=== PATIENT | female | born 1955 | race Hispanic/Latino ===

== ENCOUNTER 2018-09-02 21:58 | Emergency (ER) | payer MEDICAID ==
[2018-09-02 22:55] LABS: EOSINOPHILS % (AUTO) 2.8 % (0.0-8.0); LYMPHOCYTES % (AUTO) 32.5 % (21.0-51.0); MEAN CORPUSCULAR HEMOGLOBIN 27.9 pg (27.0-33.0); MEAN CORPUSCULAR HGB CONC 33.3 g/dL (32.0-36.0); MEAN CORPUSCULAR VOLUME 83.7 fL (79-99); MONOCYTES % (AUTO) 6.8 % (3.0-13.0); NEUTROPHILS % (AUTO) 56.9 % (40.0-77.0); PLATELET COUNT (AUTO) 159 K/uL (130-400); RED BLOOD CELL COUNT(AUTO) 4.78 MIL/uL (4.00-5.50); RED CELL DISTRIBUTION WIDTH 13.8 % (11.0-15.5); WHITE BLOOD COUNT (AUTO) 7.5 K/uL (4.8-10.8)
[2018-09-02 22:58] LABS: APPEARANCE,URINE Clear (CLEAR); BILIRUBIN,URINE Negative (NEGATIVE); COLOR,URINE Yellow (YELLOW); GLUCOSE, URINE (UA) Negative (NEGATIVE); KETONES,URINE Negative (NEGATIVE); LEUKOCYTE ESTERASE ,URINE Small (NEGATIVE); NITRATE,URINE Negative (NEGATIVE); OCCULT BLOOD,URINE Negative (NEGATIVE); PH,URINE 6.5 (5.0-8.0); PROTEIN,URINE Negative (NEGATIVE)
[2018-09-02 23:09] LABS: BACTERIA,URINE None Seen /HPF (None Seen); RBC,URINE None Seen /HPF (0-1); WBC,URINE 0-1 /HPF (0-1)
[2018-09-02 23:10] LABS: SQUAMOUS EPITHELIAL CELL,UR Rare /HPF (0-2)
[2018-09-02 23:29] LABS: CREATININE 0.7 mg/dL (0.5-1.5); POTASSIUM 3.7 mmol/L (3.5-5.1)
[2018-09-02 23:33] LABS: ALBUMIN 3.6 g/dL (3.5-5.0); BILIRUBIN,TOTAL 0.4 mg/dL (0.2-1.0); TOTAL PROTEIN, SERUM 7.2 g/dL (6.0-8.3)
[2018-09-02] MEDS ORDERED: SODIUM CHLORIDE 0.9% 1000ML 1,000 ML IV ONE (23:42)
[2018-09-02] MEDS ORDERED: FAMOTIDINE/PF 20 MG/2 ML VIAL IV ONE (23:42)
[2018-09-02] MEDS ORDERED: ONDANSETRON HCL 4 MG/2 ML VIAL ONE (23:42)
== END 2018-09-03 02:04 | disposition home or self-care (01) ==
LOC: EDH 21:58
DX: K29.70 Gastritis, unspecified, without bleeding (principal); M19.90 Unspecified osteoarthritis, unspecified site; Z98.890 Other specified postprocedural states
CPT/HCPCS: 36415; 76705; 80053; 81001; 82550; 83690; 84484; 85025; 93005; 96374; 96375; 99285; J2405; J3490; J7030

== ENCOUNTER 2019-12-01 13:38 | Observation (INO) | payer MEDICARE ==
[~2019-12-01] VITALS: Ht 154.9 cm; Wt 62.6 kg
[2019-12-01 14:38] LABS: BASOPHILS % (AUTO) 0.7 % (0.0-5.0); EOSINOPHILS % (AUTO) 1.1 % (0.0-8.0); HEMATOCRIT 42.7 % (36-48); LYMPHOCYTES % (AUTO) 28.1 % (21.0-51.0); MEAN CORPUSCULAR HEMOGLOBIN 27.8 pg (27.0-33.0); MEAN CORPUSCULAR HGB CONC 33.3 g/dL (32.0-36.0); MEAN CORPUSCULAR VOLUME 83.7 fL (79-99); NEUTROPHILS % (AUTO) 59.9 % (40.0-77.0); PLATELET COUNT (AUTO) 139 K/uL (130-400); RED CELL DISTRIBUTION WIDTH 12.7 % (11.0-15.5); WHITE BLOOD COUNT (AUTO) 5.4 K/uL (4.8-10.8)
[2019-12-01 14:51] LABS: CREATININE 0.5 mg/dL (0.5-1.5); POTASSIUM 4.5 mmol/L (3.5-5.1)
[2019-12-01 14:54] LABS: ALBUMIN 3.5 g/dL (3.5-5.0); BILIRUBIN,TOTAL 0.3 mg/dL (0.2-1.0); TOTAL PROTEIN, SERUM 7.5 g/dL (6.0-8.3)
[2019-12-01] MEDS ORDERED: ONDANSETRON HCL 4 MG/2 ML VIAL ONE (15:01)
[2019-12-01] MEDS ORDERED: KETOROLAC TROMETHAMINE 15MG/ML ONE (15:01)
[2019-12-01] MEDS ORDERED: LIDOCAINE HCL 2% VISCOUS 15 ML UDCUP ONE (15:01)
[2019-12-01] MEDS ORDERED: MAG HYDROX/AL HYDROX/SIMETH ES 30 ML SUSP UDCUP ONE (15:01)
[2019-12-01] MEDS ORDERED: MORPHINE SULFATE 4 MG/1ML SYG ONE (15:02)
[2019-12-01] MEDS ORDERED: SODIUM CHLORIDE 0.9% 1000ML 1,000 ML IV ONE (15:02)
[2019-12-01 16:17] LABS: APPEARANCE,URINE Clear (CLEAR); BILIRUBIN,URINE Negative (NEGATIVE); COLOR,URINE Yellow (YELLOW); GLUCOSE, URINE (UA) Negative (NEGATIVE); KETONES,URINE Negative (NEGATIVE); LEUKOCYTE ESTERASE ,URINE Small (NEGATIVE); NITRATE,URINE Negative (NEGATIVE); OCCULT BLOOD,URINE Negative (NEGATIVE); PH,URINE 7.5 (5.0-8.0); PROTEIN,URINE Negative (NEGATIVE); UROBILINOGEN,URINE 0.2 mg/dL (0.2-1.0)
[2019-12-01 16:24] LABS: RBC,URINE 0-1 /HPF (0-1)
[2019-12-01 16:25] LABS: BACTERIA,URINE Few /HPF (None Seen); SQUAMOUS EPITHELIAL CELL,UR Few /HPF (0-2); TRANSITIONAL EPI CELLS,URINE Rare /HPF (None Seen)
[2019-12-01] MEDS ORDERED: 1/2 NORMAL SALINE 1,000 ML IV ONE (16:30)
[2019-12-01] MEDS ORDERED: ONDANSETRON HCL 4 MG/2 ML VIAL IVP PRN (16:45)
[2019-12-01] MEDS ORDERED: HYDROMORPHONE HCL 0.5 MG/0.5 ML ML IVP PRN (16:45)
[2019-12-01] MEDS: FAMOTIDINE/PF 20 MG/2 ML VIAL IV SCH (21:00)
[2019-12-02] MEDS: 1/2 NORMAL SALINE 1,000 ML IV SCH ×3 (00:45→16:45)
[2019-12-02 05:47] LABS: BASOPHILS % (AUTO) 0.8 % (0.0-5.0); HEMATOCRIT 38.8 % (36-48); LYMPHOCYTES % (AUTO) 27.1 % (21.0-51.0); MEAN CORPUSCULAR HEMOGLOBIN 28.1 pg (27.0-33.0); MEAN CORPUSCULAR VOLUME 85.3 fL (79-99); MONOCYTES % (AUTO) 9.8 % (3.0-13.0); NEUTROPHILS % (AUTO) 60.1 % (40.0-77.0); PLATELET COUNT (AUTO) 129 K/uL (130-400); RED BLOOD CELL COUNT(AUTO) 4.55 MIL/uL (4.00-5.50); RED CELL DISTRIBUTION WIDTH 12.8 % (11.0-15.5); WHITE BLOOD COUNT (AUTO) 4.9 K/uL (4.8-10.8)
[2019-12-02 05:57] LABS: CREATININE 0.7 mg/dL (0.5-1.5)
[2019-12-02 06:05] LABS: BILIRUBIN,TOTAL 0.2 mg/dL (0.2-1.0); TOTAL PROTEIN, SERUM 6.5 g/dL (6.0-8.3)
[2019-12-02] MEDS: FAMOTIDINE/PF 20 MG/2 ML VIAL IV SCH (09:00)
[2019-12-02 09:55] VITALS: BP 138/68
[2019-12-02 11:00] VITALS: BP 122/74
--- NOTE | 2019-12-02 12:42 | NUR ---
PER PATIENT ON LOWER EXTREMITY CANNOT LIFT LEG MUCH HER LEFT ,PER PATIENT THIS IS FOR YEARS AND DOCTOR TOLD HER ITS DUE TO HER ARTHRITIS Addendum: 12/02/19 at 1312 by JOSSIE PINEDA RN RN Amended: Links added.
[2019-12-02 16:30] VITALS: BP 120/69
[2019-12-02] MEDS ORDERED: MELO-106 PO (17:11)
--- NOTE | 2019-12-02 17:25 | NUR ---
CALL TO DR LYONS ANSWERING SERVICE SPOKE WITH DIANE REGARDING FOLLOW UP ON CONSULT AND RESULTS OF HIDA SCAN . PENDING CALL BACK..INFORMED MAKI GIL THROUGH MESSAGE ON HIDA SCAN RESULTS .PENDING NEW ORDERS
[2019-12-02 19:15] VITALS: BP 114/70
[2019-12-02] MEDS ORDERED: LACTULOSE 20 GM/30 ML UDCUP PO SCH (20:15)
--- NOTE | 2019-12-02 22:30 | NUR ---
received call from [facility] stating prior scan ct resutls are wrong and the correct resutls have been updated paged dr. hutchison to make her aware of new resutls of hida scan but pending call back yet
--- NOTE | 2019-12-02 22:55 | NUR ---
pt kianna called b ack ,aware of correct results from hida scan stated no new orders, will continue with current plan of care aware patient might be schedule shaina for an egd as per dr. uriarte no new orders given by dr. hutchison, continue w current diet orders
[2019-12-03] VITALS (18 sets, daily range): BP systolic 103–167; BP diastolic 50–85
[2019-12-03] MEDS: 1/2 NORMAL SALINE 1,000 ML IV SCH ×4 (00:45→22:16)
--- NOTE | 2019-12-03 02:55 | NUR ---
paged dr. mayo
[2019-12-03] MEDS ORDERED: DICYCLOMINE HCL 20 MG TAB PO PRN (06:45)
--- NOTE | 2019-12-03 07:23 | NUR ---
DR. ELOY RAMIREZ
--- NOTE | 2019-12-03 07:45 | NUR ---
CALL BACK FROM DR LYONS, INFRMED HIM OF HIDA SCAN RESULTS, PATIENT CONTINUES WITH SOME PAIN TO EPIGASTRIC AREA, AND H-PYLORI POSITIVE .. PER DR LYONS SCHEDULE EGD AT 1330 TODAY AND MAY HAVE A CLEAR LIQUID FOR BREAKFAST
[2019-12-03] MEDS: FAMOTIDINE/PF 20 MG/2 ML VIAL IV SCH ×2 (09:00→21:28)
[2019-12-03] MEDS: POLYETHYLENE GLYCOL 3350 17 GM POWD.PACK PO SCH (09:00)
[2019-12-03] MEDS ORDERED: PROPOFOL 10 MG/ML 20ML VIAL IV ONE (15:20)
[2019-12-03] MEDS ORDERED: LIDOCAINE HCL-MPF 2% 5ML VIAL ONE (15:20)
--- NOTE | 2019-12-03 16:26 | NUR ---
Initial Assessment SW spoke to patient. Patient lives with spouse. No home health but had PHC with [facility] X 35 hours. Patient has no DME. Patient needs help with ADL's and does not drive. PCP is Dr. Emiil Solorio. Pharmacy is [facility] located in [place]. DCP is home. Addendum: 12/03/19 at 1627 by DANIEL GREEN SS Amended: Links added.
[2019-12-03] MEDS ORDERED: PHARMACY COMMUNICATION MISC SCH (20:00)
[2019-12-03] MEDS: CLARITHROMYCIN 500 MG TABLET PO SCH (21:28)
[2019-12-03] MEDS: PANTOPRAZOLE SODIUM 40 MG TABLET.DR PO SCH (21:28)
[2019-12-03] MEDS: AMOXICILLIN 500 MG CAPSULE PO SCH (21:28)
[2019-12-04 00:29] VITALS: BP 107/49
[2019-12-04] MEDS: 1/2 NORMAL SALINE 1,000 ML IV SCH ×3 (00:45→16:45)
[2019-12-04 05:19] LABS: EOSINOPHILS % (AUTO) 1.9 % (0.0-8.0); HEMATOCRIT 35.4 % (36-48); LYMPHOCYTES % (AUTO) 33.3 % (21.0-51.0); MEAN CORPUSCULAR HEMOGLOBIN 28.1 pg (27.0-33.0); MEAN CORPUSCULAR HGB CONC 33.3 g/dL (32.0-36.0); MEAN CORPUSCULAR VOLUME 84.3 fL (79-99); MONOCYTES % (AUTO) 9.3 % (3.0-13.0); NEUTROPHILS % (AUTO) 54.5 % (40.0-77.0); PLATELET COUNT (AUTO) 141 K/uL (130-400); RED CELL DISTRIBUTION WIDTH 12.4 % (11.0-15.5); WHITE BLOOD COUNT (AUTO) 5.2 K/uL (4.8-10.8)
[2019-12-04 05:39] LABS: ALBUMIN 2.8 g/dL (3.5-5.0); BILIRUBIN,TOTAL 0.7 mg/dL (0.2-1.0); CREATININE 0.6 mg/dL (0.5-1.5); POTASSIUM 3.6 mmol/L (3.5-5.1); TOTAL PROTEIN, SERUM 6.1 g/dL (6.0-8.3)
[2019-12-04 07:54] VITALS: BP 112/54
[2019-12-04] MEDS: FAMOTIDINE/PF 20 MG/2 ML VIAL IV SCH (09:00)
[2019-12-04] MEDS: CLARITHROMYCIN 500 MG TABLET PO SCH (10:52)
[2019-12-04] MEDS: AMOXICILLIN 500 MG CAPSULE PO SCH (10:52)
[2019-12-04] MEDS: POLYETHYLENE GLYCOL 3350 17 GM POWD.PACK PO SCH (10:53)
[2019-12-04] MEDS: PANTOPRAZOLE SODIUM 40 MG TABLET.DR PO SCH (10:53)
[2019-12-04 11:50] VITALS: BP 120/60
[2019-12-04 16:54] VITALS: BP 132/78
[2019-12-04] MEDS ORDERED: OMEP20TA25 PO ×2 (18:14)
[2019-12-04] MEDS ORDERED: CLAR-44 PO (18:17)
--- NOTE | 2019-12-04 18:59 | NUR ---
REviewed discharge instructions to call Dr. Strauss's office for appointment in two weeks for follow up and medication schedule. Prescription given to patient and patient verbalized understanding. PIV to LFA removed, catheter intact, bleeding controlled and dressing applied. Patient escorted down to hospital exit by wheelchair with belongings.
== END 2019-12-04 19:00 | disposition home or self-care (01) ==
LOC: EDH 13:38 → EDHIP 15:50 → 4DH 12-02 09:51
PROVIDERS: ADMIT Internal Medicine; ATTEND Internal Medicine
DX: K21.0 Gastro-esophageal reflux disease with esophagitis (principal); K29.00 Acute gastritis without bleeding; R11.2 Nausea with vomiting, unspecified; B96.81 Helicobacter pylori [H. pylori] as the cause of diseases classified elsewhere; K81.9 Cholecystitis, unspecified; I10 Essential (primary) hypertension; M79.7 Fibromyalgia; B19.20 Unspecified viral hepatitis C without hepatic coma; M19.90 Unspecified osteoarthritis, unspecified site; F41.9 Anxiety disorder, unspecified; Z79.899 Other long term (current) drug therapy
CPT/HCPCS: 36415 ×3; 43239; 76705; 78227; 80053 ×3; 80061; 81001; 82150; 82948; 83690 ×2; 84484; 85025 ×3; 86677; 93005; 96361 ×3; 96374; 96375; 99284; A4222; A4223; A4620; A9537; G0378 ×75; J1885; J2270; J2405 ×2; J2704; J3490 ×2; J7030 ×2

== ENCOUNTER → 2020-03-10 | Outpatient (CLI) | payer MEDICARE ==
[~2020-03-10] VITALS: Ht 167.6 cm; Wt 62.4 kg
[~2020-03-10] MED LIST: CEFAZOLIN SODIUM 1 GM VIAL IVP SCH; CLAR-44 PO; MELO-106 PO; OMEP20TA25 PO; VITAMIN D PO
[2020-03-10 12:41] LABS: BASOPHILS % (AUTO) 1.2 % (0.0-5.0); EOSINOPHILS % (AUTO) 3.6 % (0.0-8.0); HEMATOCRIT 42.5 % (36-48); LYMPHOCYTES % (AUTO) 35.6 % (21.0-51.0); MEAN CORPUSCULAR HEMOGLOBIN 28.5 pg (27.0-33.0); MEAN CORPUSCULAR HGB CONC 32.7 g/dL (32.0-36.0); MEAN CORPUSCULAR VOLUME 87.1 fL (79-99); MONOCYTES % (AUTO) 6.3 % (3.0-13.0); NEUTROPHILS % (AUTO) 53.1 % (40.0-77.0); PLATELET COUNT (AUTO) 156 K/uL (130-400); RED BLOOD CELL COUNT(AUTO) 4.88 MIL/uL (4.00-5.50); RED CELL DISTRIBUTION WIDTH 12.7 % (11.0-15.5); WHITE BLOOD COUNT (AUTO) 5.9 K/uL (4.8-10.8)
[2020-03-10 12:57] LABS: ALBUMIN 3.9 g/dL (3.5-5.0); BILIRUBIN,TOTAL 0.4 mg/dL (0.2-1.0); CREATININE 0.6 mg/dL (0.5-1.5); POTASSIUM 4.4 mmol/L (3.5-5.1); TOTAL PROTEIN, SERUM 7.6 g/dL (6.0-8.3)
[2020-03-10 13:59] VITALS: BP 148/61
--- NOTE | 2020-03-10 14:00 | NUR ---
PATIENT STATES THAT SHE IS HAVING A COUGH, SORE THROAT, RUNNY NOSE AND BODY ACHES. SYMPTOMS STARTED TODAY. PATIENT WAS INSTRUCTED TO CALL DR ADAMS'S OFFICE AND INFORM THEM OF HER SYMPTOMS .
--- NOTE | 2020-03-10 14:20 | NUR ---
SPOKE WITH LINDA FROM DR ADAMS'S OFFICE. CASE WILL BE CANCELED DUE TO PATIENT'S SYMPTOMS (COUGH, SORE THROAT, BODY ACHES, RUNNY NOSE).
== END ==
LOC: DAH 10:00 → EDSTATUS 11:00
PROVIDERS: ATTEND Student in an Organized Health Care Education/Training Program
DX: Z01.818 Encounter for other preprocedural examination (principal); K80.10 Calculus of gallbladder with chronic cholecystitis without obstruction
CPT/HCPCS: 36415; 80053; 85025; A6260

== ENCOUNTER 2020-09-14 07:45 | Inpatient (IN) | payer MEDICARE ==
[~2020-09-14] VITALS: Ht 160 cm; Wt 61.1 kg
[~2020-09-14 07:45] MED LIST changes: -CEFAZOLIN SODIUM 1 GM VIAL IVP SCH; -CLAR-44 PO; -MELO-106 PO; -OMEP20TA25 PO
[2020-09-14 08:33] LABS: BASOPHILS % (AUTO) 0.1 % (0.0-5.0); EOSINOPHILS % (AUTO) 0.3 % (0.0-8.0); HEMATOCRIT 40.5 % (36-48); LYMPHOCYTES % (AUTO) 7.5 % (21.0-51.0); MEAN CORPUSCULAR HEMOGLOBIN 28.2 pg (27.0-33.0); MEAN CORPUSCULAR HGB CONC 34.1 g/dL (32.0-36.0); MEAN CORPUSCULAR VOLUME 82.8 fL (79-99); NEUTROPHILS % (AUTO) 87.3 % (40.0-77.0); PLATELET COUNT (AUTO) 287 K/uL (130-400); RED BLOOD CELL COUNT(AUTO) 4.89 MIL/uL (4.00-5.50); RED CELL DISTRIBUTION WIDTH 12.7 % (11.0-15.5); WHITE BLOOD COUNT (AUTO) 9.8 K/uL (4.8-10.8)
[2020-09-14 08:38] LABS: CARBON DIOXIDE 26 mmol/L (21-32); CHLORIDE 99 mmol/L (101-111); CREATININE 0.6 mg/dL (0.5-1.5); GLOMERULAR FILTR. RATE CALC 106 mL/min (>60); GLUCOSE,RANDOM 93 mg/dL (70-105); POTASSIUM 4.4 mmol/L (3.5-5.1); SODIUM SERUM 133 mmol/L (136-145); UREA NITROGEN, BLOOD 13 mg/dL (7-18)
[2020-09-14 08:40] LABS: ABG BASE EXCESS 1.1 mmol/L (-2.0-3.0); ABG HCO3 24.5 mmol/L (21.0-28.0); ABG OXYGEN SATURATION 90.8 % (95.0-99.0); ABG PCO2 35 mmHg (32-45)
[2020-09-14 08:40] LABS: INR 1.13 (0.85-1.15); PARTIAL THROMBOPLASTIN TIME 29.9 SEC (26.3-35.5); PROTHROMBIN TIME 12.1 SEC (9.6-11.6)
[2020-09-14 08:49] LABS: ALANINE AMINOTRANSFERASE 23 U/L (12-78); ALBUMIN 2.4 g/dL (3.5-5.0); ASPARTATE AMINOTRANSFERASE 33 U/L (10-37); BILIRUBIN,TOTAL 1.2 mg/dL (0.2-1.0); CREATINE KINASE, TOTAL 62 U/L (21-232); MYOGLOBIN 38 ng/mL (10-92); TOTAL PROTEIN, SERUM 6.4 g/dL (6.0-8.3); TROPONIN I < 0.04 ng/mL (0.00-0.06)
[2020-09-14] MEDS ORDERED: CEFTRIAXONE SODIUM 1 GM ONE (09:03)
[2020-09-14] MEDS ORDERED: AZITHROMYCIN 500MG+NS 250ML 250 ML IV ONE (09:03)
[2020-09-14] MEDS ORDERED: ALBUTEROL INHALER 90MCG/INH IH ONE (09:03)
[2020-09-14] MEDS ORDERED: DEXAMETHASONE SOD PHOSPHATE 10MG/ML 1ML VIAL ONE (09:03)
[2020-09-14] MEDS ORDERED: SODIUM CHLORIDE 0.9% 50 ML IV ONE (09:04)
[2020-09-14] MEDS ORDERED: ONDANSETRON HCL 4 MG/2 ML VIAL ONE (09:59)
[2020-09-14] MEDS ORDERED: ACETAMINOPHEN 325 MG TAB ONE (09:59)
[2020-09-14] MEDS ORDERED: MAG HYDROX/AL HYDROX/SIMETH ES 30 ML SUSP UDCUP PO PRN (10:15)
[2020-09-14] MEDS ORDERED: ERGOCALCIFEROL (VITAMIN D2) 50,000 UNIT CAPSULE PO SCH (10:15)
[2020-09-14] MEDS: DEXAMETHASONE SOD PHOSPHATE 4 MG/ML 1ML VIAL IVP SCH (10:15)
[2020-09-14] MEDS ORDERED: ACETAMINOPHEN 325 MG TAB PO PRN ×2 (10:15)
[2020-09-14] MEDS ORDERED: ZOLPIDEM TARTRATE 5 MG TAB PO PRN (10:15)
[2020-09-14] MEDS ORDERED: ONDANSETRON HCL 4 MG/2 ML VIAL IV PRN (10:15)
[2020-09-14] MEDS: CEFTRIAXONE SODIUM 1 GM IVP SCH ×2 (10:15→22:02)
[2020-09-14] MEDS ORDERED: DIPHENHYDRAMINE HCL 25 MG CAPSULE PO PRN (10:15)
[2020-09-14] MEDS ORDERED: DOXYCYCLINE 100MG+NS 250ML IV SCH (10:15)
[2020-09-14] MEDS ORDERED: IPRATROPIUM/ALBUTEROL SULFATE 3 ML SOLUTION IH PRN (10:15)
[2020-09-14] MEDS: FAMOTIDINE 20MG TAB 20 MG TAB PO SCH ×2 (10:21→22:01)
[2020-09-14] MEDS ORDERED: ENOXAPARIN SODIUM 40 MG/0.4 ML SYRINGE SQ SCH (10:21)
[2020-09-14] MEDS: ZINC SULFATE 220 CAPSULE PO SCH (10:22)
[2020-09-14] MEDS: ASCORBIC ACID 500 MG TAB PO SCH (10:23)
[2020-09-14] MEDS: SODIUM CHLORIDE 0.9% IV SCH ×2 (10:25→22:06)
[2020-09-14] MEDS: DOXYCYCLINE HYCLATE IV SCH ×2 (10:25→22:06)
[2020-09-14 10:42] LABS: CRP QUANTITATIVE 378.4 mg/L (0.00-9.0)
[2020-09-14] MEDS ORDERED: ASCORBIC ACID 500 MG TAB ONE (11:30)
[2020-09-14] MEDS ORDERED: ZINC SULFATE 220 CAPSULE ONE (11:31)
[2020-09-14] MEDS ORDERED: ACETYLCYSTEINE 600 MG CAPSULE ONE (11:31)
[2020-09-14] MEDS ORDERED: BENZONATATE 100 MG CAPSULE PO ONE (11:31)
[2020-09-14] MEDS ORDERED: ERGOCALCIFEROL (VITAMIN D2) 50,000 UNIT CAPSULE ONE (11:31)
[2020-09-14] MEDS ORDERED: DOXYCYCLINE 100MG+NS 250ML 250 ML IV ONE ×2 (11:32→22:05)
[2020-09-14] MEDS ORDERED: ENOXAPARIN SODIUM 40 MG/0.4 ML SYRINGE SQ ONE (11:32)
[2020-09-14] MEDS ORDERED: FAMOTIDINE/PF 20 MG/2 ML VIAL IV ONE (11:32)
[2020-09-14] MEDS ORDERED: SODIUM CHLORIDE 0.9% 500ML 500 ML IV ONE (12:32)
[2020-09-14] MEDS: BENZONATATE 100 MG CAPSULE PO SCH ×2 (14:00→22:01)
[2020-09-14 16:46] VITALS: BP 124/60
[2020-09-14] MEDS: GUAIFENESIN-DM 200/20 MG 10 ML PO PRN (17:44)
[2020-09-14 19:44] VITALS: BP 107/63
[2020-09-14] MEDS: ACETYLCYSTEINE 600 MG CAPSULE PO SCH (22:01)
[2020-09-14 23:34] VITALS: BP 115/61
[2020-09-15 03:50] LABS: APPEARANCE,URINE Clear (CLEAR); BILIRUBIN,URINE Negative (NEGATIVE); GLUCOSE, URINE (UA) TRACE mg/dL (NEGATIVE); KETONES,URINE Negative (NEGATIVE); LEUKOCYTE ESTERASE ,URINE Negative (NEGATIVE); NITRATE,URINE Negative (NEGATIVE); OCCULT BLOOD,URINE Negative (NEGATIVE); PH,URINE 5.5 (5.0-8.0); PROTEIN,URINE POS 1+ mg/dL (NEGATIVE)
[2020-09-15 03:51] VITALS: BP 124/70
[2020-09-15 03:51] LABS: COLOR,URINE YELLOW (YELLOW)
[2020-09-15 04:04] LABS: BACTERIA,URINE Few /HPF (None Seen); MUCUS,URINE Few LPF (None Seen); RBC,URINE 0-1 /HPF (0-1); SQUAMOUS EPITHELIAL CELL,UR 0-2 /HPF (0-2); WBC,URINE 0-1 /HPF (0-1)
[2020-09-15 04:34] LABS: BASOPHILS % (AUTO) 0.2 % (0.0-5.0); HEMATOCRIT 37.4 % (36-48); LYMPHOCYTES % (AUTO) 6.2 % (21.0-51.0); MEAN CORPUSCULAR HEMOGLOBIN 27.8 pg (27.0-33.0); MEAN CORPUSCULAR HGB CONC 33.2 g/dL (32.0-36.0); MEAN CORPUSCULAR VOLUME 83.9 fL (79-99); MONOCYTES % (AUTO) 2.6 % (3.0-13.0); NEUTROPHILS % (AUTO) 90.1 % (40.0-77.0); PLATELET COUNT (AUTO) 279 K/uL (130-400); RED BLOOD CELL COUNT(AUTO) 4.46 MIL/uL (4.00-5.50); RED CELL DISTRIBUTION WIDTH 12.7 % (11.0-15.5); WHITE BLOOD COUNT (AUTO) 5.8 K/uL (4.8-10.8)
[2020-09-15 05:02] LABS: POTASSIUM 4.7 mmol/L (3.5-5.1)
[2020-09-15 05:03] LABS: ALBUMIN 2.2 g/dL (3.5-5.0); BILIRUBIN,TOTAL 0.4 mg/dL (0.2-1.0); CREATININE 0.6 mg/dL (0.5-1.5); TOTAL PROTEIN, SERUM 6.9 g/dL (6.0-8.3)
[2020-09-15 05:17] LABS: CRP QUANTITATIVE 306.6 mg/L (0.00-9.0)
[2020-09-15 08:00] VITALS: BP 117/63
[2020-09-15] MEDS ORDERED: PHARMACY COMMUNICATION MISC SCH (09:30)
[2020-09-15] MEDS: BENZONATATE 100 MG CAPSULE PO SCH ×3 (10:05→20:47)
[2020-09-15] MEDS: FAMOTIDINE 20MG TAB 20 MG TAB PO SCH ×2 (10:06→20:47)
[2020-09-15] MEDS: ACETYLCYSTEINE 600 MG CAPSULE PO SCH ×2 (10:06→20:47)
[2020-09-15] MEDS: ASCORBIC ACID 500 MG TAB PO SCH (10:06)
[2020-09-15] MEDS: ZINC SULFATE 220 CAPSULE PO SCH (10:06)
[2020-09-15] MEDS: CEFTRIAXONE SODIUM 1 GM IVP SCH ×2 (10:17→20:48)
[2020-09-15] MEDS: DEXAMETHASONE SOD PHOSPHATE 4 MG/ML 1ML VIAL IVP SCH (10:18)
[2020-09-15] MEDS: SODIUM CHLORIDE 0.9% IV SCH ×2 (10:20→22:29)
[2020-09-15] MEDS: DOXYCYCLINE HYCLATE IV SCH ×2 (10:20→22:29)
[2020-09-15 12:00] VITALS: BP 120/62
[2020-09-15 16:00] VITALS: BP 114/55
[2020-09-15 19:09] VITALS: BP 131/74
[2020-09-15] MEDS: GUAIFENESIN-DM 200/20 MG 10 ML PO PRN (20:47)
[2020-09-15] MEDS ORDERED: DOXYCYCLINE 100MG+NS 250ML 250 ML IV ONE (21:58)
[2020-09-15 23:01] VITALS: BP 116/66
[2020-09-16 03:31] VITALS: BP 114/59
[2020-09-16 05:23] LABS: HEMATOCRIT 35.5 % (36-48); LYMPHOCYTES % (AUTO) 5.6 % (21.0-51.0); MEAN CORPUSCULAR HGB CONC 32.7 g/dL (32.0-36.0); MEAN CORPUSCULAR VOLUME 85.5 fL (79-99); MONOCYTES % (AUTO) 2.8 % (3.0-13.0); NEUTROPHILS % (AUTO) 90.8 % (40.0-77.0); PLATELET COUNT (AUTO) 303 K/uL (130-400); RED BLOOD CELL COUNT(AUTO) 4.15 MIL/uL (4.00-5.50); RED CELL DISTRIBUTION WIDTH 12.8 % (11.0-15.5); WHITE BLOOD COUNT (AUTO) 8.8 K/uL (4.8-10.8)
[2020-09-16 05:39] LABS: ALBUMIN 2.1 g/dL (3.5-5.0); BILIRUBIN,TOTAL 0.3 mg/dL (0.2-1.0); CREATININE 0.6 mg/dL (0.5-1.5); POTASSIUM 3.9 mmol/L (3.5-5.1); TOTAL PROTEIN, SERUM 6.2 g/dL (6.0-8.3)
[2020-09-16 05:54] LABS: CRP QUANTITATIVE 127.9 mg/L (0.00-9.0)
[2020-09-16 08:00] VITALS: BP 95/45
[2020-09-16] MEDS: FAMOTIDINE 20MG TAB 20 MG TAB PO SCH ×2 (09:40→20:48)
[2020-09-16] MEDS: ASCORBIC ACID 500 MG TAB PO SCH (09:40)
[2020-09-16] MEDS: ZINC SULFATE 220 CAPSULE PO SCH (09:40)
[2020-09-16] MEDS: BENZONATATE 100 MG CAPSULE PO SCH ×3 (09:40→20:48)
[2020-09-16] MEDS: ACETYLCYSTEINE 600 MG CAPSULE PO SCH ×2 (09:40→20:48)
[2020-09-16] MEDS: ENOXAPARIN SODIUM 60 MG/0.6 ML SQ SCH (09:41)
[2020-09-16] MEDS: CEFTRIAXONE SODIUM 1 GM IVP SCH ×2 (09:45→20:51)
[2020-09-16] MEDS: DOXYCYCLINE 100MG+NS 250ML 250 ML IV SCH ×2 (10:05→20:48)
[2020-09-16] MEDS: DEXAMETHASONE SOD PHOSPHATE 4 MG/ML 1ML VIAL IVP SCH (10:10)
[2020-09-16 12:00] VITALS: BP 112/54
[2020-09-16 16:00] VITALS: BP_SYST 20
[2020-09-16] MEDS: GUAIFENESIN-CODEINE 5 ML SYRUP PO PRN (20:48)
[2020-09-16] MEDS: CLONAZEPAM 0.5 MG TABLET PO SCH (20:48)
[2020-09-16 21:00] VITALS: BP 138/77
[2020-09-17 00:23] VITALS: BP 131/52
[2020-09-17 04:27] VITALS: BP 118/58
[2020-09-17 05:04] LABS: EOSINOPHILS % (AUTO) 0.2 % (0.0-8.0); HEMATOCRIT 38.3 % (36-48); LYMPHOCYTES % (AUTO) 11.6 % (21.0-51.0); MEAN CORPUSCULAR HEMOGLOBIN 28.3 pg (27.0-33.0); MEAN CORPUSCULAR HGB CONC 33.4 g/dL (32.0-36.0); MEAN CORPUSCULAR VOLUME 84.7 fL (79-99); MONOCYTES % (AUTO) 6.3 % (3.0-13.0); NEUTROPHILS % (AUTO) 81.4 % (40.0-77.0); PLATELET COUNT (AUTO) 326 K/uL (130-400); RED BLOOD CELL COUNT(AUTO) 4.52 MIL/uL (4.00-5.50); RED CELL DISTRIBUTION WIDTH 12.8 % (11.0-15.5); WHITE BLOOD COUNT (AUTO) 6.6 K/uL (4.8-10.8)
[2020-09-17 05:20] LABS: ALBUMIN 2.3 g/dL (3.5-5.0); BILIRUBIN,TOTAL 0.4 mg/dL (0.2-1.0); CREATININE 0.6 mg/dL (0.5-1.5); CRP QUANTITATIVE 62.7 mg/L (0.00-9.0); POTASSIUM 4.4 mmol/L (3.5-5.1); TOTAL PROTEIN, SERUM 6.2 g/dL (6.0-8.3)
[2020-09-17 08:23] VITALS: BP 138/63
[2020-09-17] MEDS: FAMOTIDINE 20MG TAB 20 MG TAB PO SCH ×2 (10:13→21:32)
[2020-09-17] MEDS: ASCORBIC ACID 500 MG TAB PO SCH (10:13)
[2020-09-17] MEDS: ACETYLCYSTEINE 600 MG CAPSULE PO SCH ×2 (10:13→21:32)
[2020-09-17] MEDS: CLONAZEPAM 0.5 MG TABLET PO SCH ×2 (10:13→21:31)
[2020-09-17] MEDS: ZINC SULFATE 220 CAPSULE PO SCH (10:13)
[2020-09-17] MEDS: ENOXAPARIN SODIUM 60 MG/0.6 ML SQ SCH (10:13)
[2020-09-17] MEDS: DOXYCYCLINE 100MG+NS 250ML 250 ML IV SCH ×2 (10:20→21:31)
[2020-09-17] MEDS: BENZONATATE 100 MG CAPSULE PO SCH ×3 (10:20→21:32)
[2020-09-17] MEDS: CEFTRIAXONE SODIUM 1 GM IVP SCH ×2 (10:20→21:32)
[2020-09-17] MEDS: DEXAMETHASONE SOD PHOSPHATE 4 MG/ML 1ML VIAL IVP SCH (10:20)
[2020-09-17 12:00] VITALS: BP 120/86
[2020-09-17] MEDS: PHARMACY COMMUNICATION MISC SCH ×3 (12:35→20:35)
[2020-09-17 16:00] VITALS: BP 111/59
[2020-09-17 20:22] VITALS: BP 121/60
[2020-09-18 00:40] VITALS: BP 118/65
[2020-09-18 04:29] VITALS: BP 136/67
[2020-09-18 05:10] LABS: ALANINE AMINOTRANSFERASE 19 U/L (12-78); ALBUMIN 2.2 g/dL (3.5-5.0); ASPARTATE AMINOTRANSFERASE 17 U/L (10-37); BILIRUBIN,TOTAL 0.3 mg/dL (0.2-1.0); CARBON DIOXIDE 33 mmol/L (21-32); CHLORIDE 105 mmol/L (101-111); CREATININE 0.6 mg/dL (0.5-1.5); GLOMERULAR FILTR. RATE CALC 106 mL/min (>60); GLUCOSE,RANDOM 119 mg/dL (70-105); LACTATE DEHYDROGENASE 144 U/L (81-234); POTASSIUM 4.3 mmol/L (3.5-5.1); SODIUM SERUM 139 mmol/L (136-145); TOTAL PROTEIN, SERUM 6.1 g/dL (6.0-8.3); UREA NITROGEN, BLOOD 12 mg/dL (7-18)
[2020-09-18 07:00] VITALS: BP 90/50
[2020-09-18] MEDS: PHARMACY COMMUNICATION MISC SCH ×3 (08:35→12:35)
[2020-09-18] MEDS ORDERED: BENZ200C53 PO (08:43)
[2020-09-18] MEDS ORDERED: DEXA6TAB PO (08:43)
[2020-09-18] MEDS ORDERED: ZINC220C6 PO (08:43)
[2020-09-18] MEDS ORDERED: APIX2.5T PO (08:43)
[2020-09-18] MEDS ORDERED: ASCO500T20 PO (08:43)
[2020-09-18] MEDS: DOXYCYCLINE 100MG+NS 250ML 250 ML IV SCH ×2 (09:00→09:41)
[2020-09-18] MEDS ORDERED: DEXAMETHASONE 4 MG TAB PO SCH (09:00)
[2020-09-18] MEDS: CLONAZEPAM 0.5 MG TABLET PO SCH (09:35)
[2020-09-18] MEDS: ACETYLCYSTEINE 600 MG CAPSULE PO SCH (09:35)
[2020-09-18] MEDS: FAMOTIDINE 20MG TAB 20 MG TAB PO SCH (09:36)
[2020-09-18] MEDS: ZINC SULFATE 220 CAPSULE PO SCH (09:36)
[2020-09-18] MEDS: CEFTRIAXONE SODIUM 1 GM IVP SCH (09:36)
[2020-09-18] MEDS: ASCORBIC ACID 500 MG TAB PO SCH (09:36)
[2020-09-18] MEDS: BENZONATATE 100 MG CAPSULE PO SCH ×2 (09:36→14:13)
[2020-09-18] MEDS: ENOXAPARIN SODIUM 60 MG/0.6 ML SQ SCH (09:37)
[2020-09-18 11:00] VITALS: BP 104/51
[2020-09-18] MEDS: GUAIFENESIN-CODEINE 5 ML SYRUP PO PRN (12:02)
[2020-09-18 16:00] VITALS: BP 107/98
== END 2020-09-18 16:50 | DRG 177 ==
LOC: EDH 07:45 → EDHIP 09:30 → 2AH 16:37
PROVIDERS: ADMIT Hospitalist; ATTEND Hospitalist
PROC: XW13325 Transfusion of Convalescent Plasma (Nonautologous) into Peripheral Vein, Percutaneous Approach, New Technology Group 5 (ICD-10-PCS; principal; 2020-09-14)
DX: U07.1 COVID-19 (principal); J12.89 Other viral pneumonia; J96.01 Acute respiratory failure with hypoxia; E87.1 Hypo-osmolality and hyponatremia; E44.0 Moderate protein-calorie malnutrition; F41.9 Anxiety disorder, unspecified; F32.9 Major depressive disorder, single episode, unspecified; R73.9 Hyperglycemia, unspecified; D72.810 Lymphocytopenia; E87.8 Other disorders of electrolyte and fluid balance, not elsewhere classified; Z82.49 Family history of ischemic heart disease and other diseases of the circulatory system; Z83.3 Family history of diabetes mellitus; Z82.3 Family history of stroke; Z98.891 History of uterine scar from previous surgery; Z68.23 Body mass index [BMI] 23.0-23.9, adult
CPT/HCPCS: 36415; 36600; 71045; 80053; 81001; 82550; 82728; 82803; 83605; 83615; 83874; 84145; 84484; 85025; 85378; 85610; 85651; 85730; 86140; 86850; 86900; 86901; 86927; 87040; 87088; 87426; 93005; 94760; G0378; J0456; J0696; J1100; J1650; J2405; J3490; J7040; J7050; J8540

== ENCOUNTER 2021-02-12 12:56 | Observation (INO) | payer MEDICARE ==
[~2021-02-12] VITALS: Ht 152.4 cm; Wt 55.9 kg
[~2021-02-12 12:56] MED LIST changes: +APIX2.5T PO; +ASCO500T20 PO; +BENZ200C53 PO; +DEXA6TAB PO; +ZINC220C6 PO
[2021-02-12 13:08] LABS: BASOPHILS % (AUTO) 0.6 % (0.0-5.0); EOSINOPHILS % (AUTO) 7.2 % (0.0-8.0); LYMPHOCYTES % (AUTO) 26.3 % (21.0-51.0); MEAN CORPUSCULAR HEMOGLOBIN 27.6 pg (27.0-33.0); MEAN CORPUSCULAR HGB CONC 33.2 g/dL (32.0-36.0); MEAN CORPUSCULAR VOLUME 83.3 fL (79-99); MONOCYTES % (AUTO) 6.1 % (3.0-13.0); NEUTROPHILS % (AUTO) 59.5 % (40.0-77.0); PLATELET COUNT (AUTO) 159 K/uL (130-400); RED BLOOD CELL COUNT(AUTO) 4.92 MIL/uL (4.00-5.50); RED CELL DISTRIBUTION WIDTH 13.5 % (11.0-15.5); WHITE BLOOD COUNT (AUTO) 6.8 K/uL (4.8-10.8)
[2021-02-12 13:17] LABS: INR 1.02 (0.85-1.15); PROTHROMBIN TIME 11.1 SEC (9.6-11.6)
[2021-02-12 13:19] LABS: PARTIAL THROMBOPLASTIN TIME 24.8 SEC (26.3-35.5)
[2021-02-12 13:22] LABS: ALBUMIN 3.6 g/dL (3.5-5.0); BILIRUBIN,TOTAL 0.4 mg/dL (0.2-1.0); CREATININE 0.7 mg/dL (0.5-1.5); POTASSIUM 3.7 mmol/L (3.5-5.1); TOTAL PROTEIN, SERUM 7.3 g/dL (6.0-8.3)
[2021-02-12] MEDS ORDERED: ASPIRIN 325 MG TABLET ONE (13:33)
[2021-02-12] MEDS ORDERED: LORAZEPAM 2 MG/ML 1 ML VIAL ONE (13:34)
[2021-02-12] MEDS ORDERED: IOHEXOL-350 75 ML VIAL IV ONE (13:36)
[2021-02-12 15:59] LABS: APPEARANCE,URINE Clear (CLEAR); BILIRUBIN,URINE Negative (NEGATIVE); COLOR,URINE Yellow (YELLOW); GLUCOSE, URINE (UA) Negative (NEGATIVE); KETONES,URINE Negative (NEGATIVE); LEUKOCYTE ESTERASE ,URINE Negative (NEGATIVE); NITRATE,URINE Negative (NEGATIVE); OCCULT BLOOD,URINE Negative (NEGATIVE); PH,URINE >=9.0 (5.0-8.0); PROTEIN,URINE Negative (NEGATIVE)
[2021-02-12 16:07] LABS: AMPHET/METH SCREEN,URINE NEGATIVE (NEGATIVE); BARBITURATE SCREEN, URINE NEGATIVE (NEGATIVE); BENZODIAZEPINES SCREEN,URINE NEGATIVE (NEGATIVE); CANNABINOID SCREEN,URINE NEGATIVE (NEGATIVE); COCAINE SCREEN,URINE NEGATIVE (NEGATIVE); OPIATE SCREEN,URINE NEGATIVE (NEGATIVE); PHENCYCLIDINE SCREEN,URINE NEGATIVE (NEGATIVE)
[2021-02-12 16:12] LABS: AMORPHOUS SEDIMENT,UR Few /LPF (None Seen); BACTERIA,URINE Rare /HPF (None Seen); RBC,URINE 0-1 /HPF (0-1); SQUAMOUS EPITHELIAL CELL,UR Rare /HPF (0-2); WBC,URINE 0-1 /HPF (0-1)
[2021-02-12] MEDS ORDERED: LABETALOL HCL 5 MG/ML 20ML VIAL IV PRN (17:00)
[2021-02-12 17:16] LABS: CHOLESTEROL 180 mg/dL (<200); HDL CHOLESTEROL 132 mg/dL (35-85); LDL DIRECT 103 mg/dL (0-99); TRIGLYCERIDES 102 mg/dL (30-200)
[2021-02-12 18:24] LABS: HEMOGLOBIN A1C 6.4 % (4.0-6.0)
[2021-02-12] MEDS: ATORVASTATIN CALCIUM 40 MG TABLET PO SCH (21:00)
[2021-02-12] MEDS ORDERED: ATORVASTATIN CALCIUM 40 MG TABLET ONE (21:05)
[2021-02-13] MEDS ORDERED: ASPIRIN 81MG TAB.CHEW ONE (08:18)
[2021-02-13] MEDS: ASPIRIN 81MG TAB.CHEW PO SCH (09:00)
[2021-02-13] MEDS: CLOPIDOGREL BISULFATE 75 MG TAB PO SCH (09:28)
[2021-02-13] MEDS: ATORVASTATIN CALCIUM 40 MG TABLET PO SCH (21:00)
[2021-02-13] MEDS ORDERED: ATORVASTATIN CALCIUM 40 MG TABLET ONE (21:34)
[2021-02-13 21:56] VITALS: BP 112/57
[2021-02-13 23:43] VITALS: BP 130/58
[2021-02-14 03:49] LABS: BASOPHILS % (AUTO) 0.7 % (0.0-5.0); EOSINOPHILS % (AUTO) 0.3 % (0.0-8.0); HEMATOCRIT 39.5 % (36-48); LYMPHOCYTES % (AUTO) 32.8 % (21.0-51.0); MEAN CORPUSCULAR HEMOGLOBIN 27.2 pg (27.0-33.0); MEAN CORPUSCULAR HGB CONC 32.2 g/dL (32.0-36.0); MEAN CORPUSCULAR VOLUME 84.6 fL (79-99); MONOCYTES % (AUTO) 7.2 % (3.0-13.0); NEUTROPHILS % (AUTO) 58.7 % (40.0-77.0); PLATELET COUNT (AUTO) 173 K/uL (130-400); RED BLOOD CELL COUNT(AUTO) 4.67 MIL/uL (4.00-5.50); RED CELL DISTRIBUTION WIDTH 13.5 % (11.0-15.5)
[2021-02-14 04:02] LABS: CREATININE 0.7 mg/dL (0.5-1.5)
[2021-02-14 05:00] VITALS: BP 124/62
[2021-02-14 07:00] VITALS: BP_SYST 104; BP_SYST 106; BP_DIAS 56; BP_DIAS 58
[2021-02-14] MEDS: CLOPIDOGREL BISULFATE 75 MG TAB PO SCH (09:24)
[2021-02-14] MEDS: ASPIRIN 81MG TAB.CHEW PO SCH (09:25)
[2021-02-14 11:00] VITALS: BP 120/60
[2021-02-14] MEDS ORDERED: ATOR40TA69 PO (15:19)
[2021-02-14] MEDS ORDERED: CLOP75TA14 PO (15:19)
[2021-02-14] MEDS ORDERED: ASPI-1005 PO (15:19)
[2021-02-14 16:00] VITALS: BP 104/58
== END 2021-02-14 18:50 | disposition home or self-care (01) ==
LOC: EDH 12:56 → EDHIP 17:57 → INTOOBSV 17:57 → EDHIP 02-13 10:22 → 4DH 02-13 21:33
PROVIDERS: ADMIT Internal Medicine; ATTEND Internal Medicine
DX: I63.89 Other cerebral infarction (principal); G81.94 Hemiplegia, unspecified affecting left nondominant side; R07.89 Other chest pain; F41.1 Generalized anxiety disorder; M19.90 Unspecified osteoarthritis, unspecified site; R13.10 Dysphagia, unspecified; Z91.041 Radiographic dye allergy status; Z91.013 Allergy to seafood; Z79.01 Long term (current) use of anticoagulants; Z79.899 Other long term (current) drug therapy
CPT/HCPCS: 36415 ×2; 70450; 70544; 70547; 70551; 71045; 80048; 80053; 80061; 80305; 81001; 82948; 83036; 83721; 84443; 84484 ×2; 85025 ×2; 85610; 85730; 92522; 92610; 93005; 97039 ×2; 97161; 99285; G0378 ×49; G8978; G8979; G8980; G8981; G8982; G8983; J2060; Q9967

== ENCOUNTER 2021-07-19 21:53 | Observation (INO) | payer MEDICARE ==
[~2021-07-19] VITALS: Ht 157.5 cm; Wt 61.2 kg
[~2021-07-19 21:53] MED LIST changes: +ATOR40TA69 PO; +CLOP75TA14 PO; +MAGNESIUM OXIDE 400 MG TABLET PO ONE
[2021-07-19 22:34] VITALS: BP 115/53
[2021-07-19 23:02] LABS: BASOPHILS % (AUTO) 0.4 % (0.0-5.0); HEMATOCRIT 37.4 % (36-48); LYMPHOCYTES % (AUTO) 7.6 % (21.0-51.0); MEAN CORPUSCULAR HEMOGLOBIN 28.9 pg (27.0-33.0); MEAN CORPUSCULAR HGB CONC 33.4 g/dL (32.0-36.0); MEAN CORPUSCULAR VOLUME 86.4 fL (79-99); MONOCYTES % (AUTO) 7.1 % (3.0-13.0); NEUTROPHILS % (AUTO) 82.4 % (40.0-77.0); PLATELET COUNT (AUTO) 109 K/uL (130-400); RED BLOOD CELL COUNT(AUTO) 4.33 MIL/uL (4.00-5.50); RED CELL DISTRIBUTION WIDTH 13.2 % (11.0-15.5); WHITE BLOOD COUNT (AUTO) 5.6 K/uL (4.8-10.8)
[2021-07-19 23:16] LABS: CARBON DIOXIDE 28 mmol/L (21-32); CHLORIDE 101 mmol/L (101-111); CREATININE 0.6 mg/dL (0.5-1.5); GLOMERULAR FILTR. RATE CALC 106 mL/min (>60); GLUCOSE,RANDOM 120 mg/dL (70-105); POTASSIUM 3.4 mmol/L (3.5-5.1); SODIUM SERUM 138 mmol/L (136-145); UREA NITROGEN, BLOOD 10 mg/dL (7-18)
[2021-07-19 23:21] LABS: ALANINE AMINOTRANSFERASE 17 U/L (12-78); ALBUMIN 3.1 g/dL (3.5-5.0); ASPARTATE AMINOTRANSFERASE 14 U/L (10-37); BILIRUBIN,TOTAL 0.6 mg/dL (0.2-1.0); CREATINE KINASE, TOTAL 49 U/L (21-232); TOTAL PROTEIN, SERUM 6.2 g/dL (6.0-8.3)
[2021-07-19 23:22] LABS: LIPASE < 50 U/L (114-286)
[2021-07-20] VITALS (9 sets, daily range): BP systolic 83–146; BP diastolic 45–63
[2021-07-20] MEDS ORDERED: 0.9% NACL 500ML IV.SOLN 500 ML IV ONE
[2021-07-20] MEDS ORDERED: KETOROLAC 30MG VIAL (30MG/ML) IV ONE
[2021-07-20] MEDS ORDERED: MAGNESIUM OXIDE 400 MG TABLET PO ONE (00:04)
[2021-07-20 01:46] LABS: INR 1.18 (0.85-1.15); PROTHROMBIN TIME 12.7 SEC (9.6-11.6)
[2021-07-20 01:48] LABS: PARTIAL THROMBOPLASTIN TIME 27.5 SEC (26.3-35.5)
[2021-07-20] MEDS ORDERED: DOXYCYCLINE 100MG IVPB (VIAL) IVPB ONE (02:00)
[2021-07-20] MEDS ORDERED: 0.9% NACL 250ML IV ONE (02:00)
[2021-07-20] MEDS ORDERED: DOXYCYCLINE 100MG+NS 250ML 250 ML IV ONE (02:30)
[2021-07-20 03:34] LABS: APPEARANCE,URINE Clear (CLEAR); BILIRUBIN,URINE Negative (NEGATIVE); COLOR,URINE Yellow (YELLOW); GLUCOSE, URINE (UA) Negative (NEGATIVE); KETONES,URINE Negative (NEGATIVE); LEUKOCYTE ESTERASE ,URINE Negative (NEGATIVE); NITRATE,URINE Negative (NEGATIVE); OCCULT BLOOD,URINE Negative (NEGATIVE); PH,URINE 6.5 (5.0-8.0); PROTEIN,URINE Negative (NEGATIVE)
[2021-07-20] MEDS ORDERED: ACETAMINOPHEN 500 MG TABLET ONE (03:49)
[2021-07-20] MEDS ORDERED: ACETAMINOPHEN 500 MG TABLET PO ONE (04:00)
[2021-07-20] MEDS: DOXYCYCLINE 100MG+NS 250ML 250 ML IV SCH ×2 (05:30→18:56)
[2021-07-20] MEDS ORDERED: LACTULOSE 20 GM/30 ML UDCUP PO PRN (05:30)
[2021-07-20] MEDS ORDERED: ACETAMINOPHEN 325 MG TAB PO PRN ×2 (05:30)
[2021-07-20] MEDS ORDERED: ONDANSETRON 4MG INJ IV PRN (05:30)
[2021-07-20] MEDS ORDERED: POTASSIUM CHLORIDE 10MEQ/100ML 100 ML IV PRN (05:30)
[2021-07-20] MEDS ORDERED: 0.9% NACL 250ML IVPB SCH (05:30)
[2021-07-20] MEDS ORDERED: ZOLPIDEM TARTRATE 5 MG TAB PO PRN (05:30)
[2021-07-20] MEDS ORDERED: DOXYCYCLINE 100MG IVPB (VIAL) IVPB SCH (05:30)
[2021-07-20] MEDS ORDERED: NITROGLYCERIN 0.4 MG SL TAB SL PRN (05:30)
[2021-07-20] MEDS ORDERED: MAG/ALUM/SIMETH 30 ML UDCUP PO PRN (05:30)
[2021-07-20] MEDS: LACTATED RINGERS 1000ML 1,000 ML IV SCH ×2 (05:33→10:21)
[2021-07-20 05:42] LABS: HEMOGLOBIN A1C 5.9 % (4.0-6.0)
[2021-07-20] MEDS: KCL 20 MEQ ERTAB PO PRN (05:46)
[2021-07-20] MEDS ORDERED: ENOXAPARIN SODIUM 40 MG/0.4 ML SYRINGE SQ SCH (09:00)
[2021-07-20] MEDS ORDERED: MAGNESIUM 2GM PREMIX 50ML 50 ML IV PRN (09:30)
[2021-07-20] MEDS ORDERED: KCL 20 MEQ ERTAB PO SCH (09:30)
[2021-07-20] MEDS: CEFTRIAXONE 2GM VIAL IVP SCH ×2 (10:21→20:41)
[2021-07-20] MEDS: FAMOTIDINE 20MG TAB PO SCH ×2 (10:21→20:41)
[2021-07-20] MEDS: PANTOPRAZOLE 40 MG TAB DR PO SCH (10:23)
[2021-07-20] MEDS ORDERED: VANCOMYCIN PROTOCOL PER PHARMACY IV SCH (14:30)
[2021-07-20] MEDS ORDERED: PANT40TA54 PO (15:28)
[2021-07-20] MEDS ORDERED: VANCOMYCIN KIT 1 GM/250 ML IV.KIT IV ONE (16:00)
[2021-07-20] MEDS ORDERED: 0.9% NACL 250ML 250 ML IV ONE (16:00)
[2021-07-21] MEDS ORDERED: 0.9% NACL 250ML 250 ML ONE ×2 (04:24→16:41)
[2021-07-21] MEDS: DOXYCYCLINE 100MG+NS 250ML 250 ML IV SCH ×2 (05:34→16:43)
[2021-07-21] MEDS ORDERED: 0.9%NACL 100ML 100 ML IV SCH (06:00)
[2021-07-21] MEDS ORDERED: VANCOMYCIN 500MG+NS 100ML IVPB IV SCH (06:00)
[2021-07-21 06:50] LABS: BASOPHILS % (AUTO) 0.8 % (0.0-5.0); HEMATOCRIT 34.1 % (36-48); LYMPHOCYTES % (AUTO) 22.7 % (21.0-51.0); MEAN CORPUSCULAR HEMOGLOBIN 28.5 pg (27.0-33.0); MEAN CORPUSCULAR HGB CONC 32.6 g/dL (32.0-36.0); MEAN CORPUSCULAR VOLUME 87.4 fL (79-99); MONOCYTES % (AUTO) 7.9 % (3.0-13.0); NEUTROPHILS % (AUTO) 68.3 % (40.0-77.0); PLATELET COUNT (AUTO) 110 K/uL (130-400); RED CELL DISTRIBUTION WIDTH 13.4 % (11.0-15.5); WHITE BLOOD COUNT (AUTO) 3.8 K/uL (4.8-10.8)
[2021-07-21 07:15] LABS: ALBUMIN 2.5 g/dL (3.5-5.0); BILIRUBIN,TOTAL 0.2 mg/dL (0.2-1.0); CREATININE 0.6 mg/dL (0.5-1.5); POTASSIUM 3.5 mmol/L (3.5-5.1); TOTAL PROTEIN, SERUM 5.8 g/dL (6.0-8.3)
[2021-07-21 08:00] VITALS: BP 124/63
[2021-07-21] MEDS: LACTATED RINGERS 1000ML 1,000 ML IV SCH ×2 (08:10→21:04)
[2021-07-21] MEDS: FAMOTIDINE 20MG TAB PO SCH ×2 (08:50→20:45)
[2021-07-21] MEDS: PANTOPRAZOLE 40 MG TAB DR PO SCH (08:50)
[2021-07-21] MEDS: CEFTRIAXONE 2GM VIAL IVP SCH ×2 (08:50→20:45)
[2021-07-21] MEDS ORDERED: MAG/ALUM/SIMETH 30 ML UDCUP PO SCH (10:00)
[2021-07-21 12:00] VITALS: BP_SYST 110; BP_SYST 112; BP_SYST 114; BP_DIAS 49; BP_DIAS 54; BP_DIAS 58
[2021-07-21 16:00] VITALS: BP 156/91
[2021-07-21 20:00] VITALS: BP 132/76
[2021-07-21 23:48] VITALS: BP 144/66
[2021-07-22] MEDS ORDERED: 0.9% NACL 250ML 250 ML ONE (03:59)
[2021-07-22 04:00] VITALS: BP_SYST 110; BP_SYST 116; BP_SYST 120; BP_DIAS 62; BP_DIAS 70; BP_DIAS 78
[2021-07-22] MEDS: DOXYCYCLINE 100MG+NS 250ML 250 ML IV SCH (04:23)
[2021-07-22 05:53] LABS: BASOPHILS % (AUTO) 0.5 % (0.0-5.0); HEMATOCRIT 33.5 % (36-48); LYMPHOCYTES % (AUTO) 31.6 % (21.0-51.0); MEAN CORPUSCULAR HEMOGLOBIN 28.7 pg (27.0-33.0); MEAN CORPUSCULAR HGB CONC 33.1 g/dL (32.0-36.0); MEAN CORPUSCULAR VOLUME 86.6 fL (79-99); MONOCYTES % (AUTO) 10.9 % (3.0-13.0); NEUTROPHILS % (AUTO) 56.7 % (40.0-77.0); PLATELET COUNT (AUTO) 120 K/uL (130-400); RED BLOOD CELL COUNT(AUTO) 3.87 MIL/uL (4.00-5.50); RED CELL DISTRIBUTION WIDTH 13.1 % (11.0-15.5); WHITE BLOOD COUNT (AUTO) 3.9 K/uL (4.8-10.8)
[2021-07-22 06:05] LABS: CREATININE 0.5 mg/dL (0.5-1.5); POTASSIUM 3.3 mmol/L (3.5-5.1)
[2021-07-22] MEDS: KCL 20 MEQ ERTAB PO PRN (06:19)
[2021-07-22 08:00] VITALS: BP 127/70
[2021-07-22] MEDS: PANTOPRAZOLE 40 MG TAB DR PO SCH (08:54)
[2021-07-22] MEDS: FAMOTIDINE 20MG TAB PO SCH (08:54)
[2021-07-22] MEDS: CEFTRIAXONE 2GM VIAL IVP SCH (08:54)
[2021-07-22] MEDS: LACTATED RINGERS 1000ML 1,000 ML IV SCH (10:50)
[2021-07-22] MEDS ORDERED: DOXY100T21 PO (15:19)
[2021-07-22] MEDS ORDERED: KCL 20 MEQ ERTAB PO ONE (15:30)
== END 2021-07-22 17:30 | disposition home or self-care (01) ==
LOC: EDH 21:53 → EDHIP 07-20 05:06 → 3AH 07-20 08:00
PROVIDERS: ADMIT Internal Medicine; ATTEND Internal Medicine
DX: A41.9 Sepsis, unspecified organism (principal); Z20.822 Contact with and (suspected) exposure to COVID-19; R55 Syncope and collapse; S01.01XA Laceration without foreign body of scalp, initial encounter; D69.6 Thrombocytopenia, unspecified; R50.9 Fever, unspecified; E87.6 Hypokalemia; I10 Essential (primary) hypertension; E86.1 Hypovolemia; B96.89 Other specified bacterial agents as the cause of diseases classified elsewhere; E78.5 Hyperlipidemia, unspecified; E83.42 Hypomagnesemia; R53.81 Other malaise; R53.1 Weakness; K21.9 Gastro-esophageal reflux disease without esophagitis; Z98.891 History of uterine scar from previous surgery; Z86.73 Personal history of transient ischemic attack (TIA), and cerebral infarction without residual deficits; W18.39XA Other fall on same level, initial encounter; Y93.89 Activity, other specified; Y92.89 Other specified places as the place of occurrence of the external cause; Y99.8 Other external cause status
CPT/HCPCS: 36415 ×4; 70450; 71045; 74176; 80048; 80053 ×2; 80202; 81003; 82550; 83036; 83605; 83690; 83735; 84145 ×2; 84484; 85025 ×3; 85610; 85730; 86757; 87040 ×4; 87324; 87507; 87635; 87804 ×2; 93005; 96361 ×2; 96365; 96366 ×2; 96367; 96368; 96372; 96375; 96376 ×3; 99285; C9803; G0378 ×59; J0696 ×5; J1650; J1885; J3370 ×2; J3490 ×5; J7040; J7050 ×5; J7120 ×3

== ENCOUNTER 2022-01-24 15:41 | Emergency (ER) | payer MEDICARE ==
[~2022-01-24] VITALS: Ht 157.5 cm; Wt 63.5 kg
[~2022-01-24 15:41] MED LIST changes: -APIX2.5T PO; -ASCO500T20 PO; -ATOR40TA69 PO; -BENZ200C53 PO; -CLOP75TA14 PO; -DEXA6TAB PO; -MAGNESIUM OXIDE 400 MG TABLET PO ONE; +PANT40TA54 PO; -VITAMIN D PO; -ZINC220C6 PO
[2022-01-24 16:15] LABS: APPEARANCE,URINE Clear (CLEAR); BILIRUBIN,URINE Negative (NEGATIVE); COLOR,URINE Yellow (YELLOW); GLUCOSE, URINE (UA) Negative (NEGATIVE); KETONES,URINE Negative (NEGATIVE); LEUKOCYTE ESTERASE ,URINE Trace (NEGATIVE); NITRATE,URINE Negative (NEGATIVE); OCCULT BLOOD,URINE Negative (NEGATIVE); PH,URINE 5.5 (5.0-8.0); PROTEIN,URINE Negative (NEGATIVE); UROBILINOGEN,URINE 0.2 mg/dL (0.2-1.0)
[2022-01-24 16:19] LABS: BASOPHILS % (AUTO) 0.4 % (0.0-5.0); HEMATOCRIT 42.6 % (36-48); LYMPHOCYTES % (AUTO) 7.4 % (21.0-51.0); MEAN CORPUSCULAR HEMOGLOBIN 28.7 pg (27.0-33.0); MEAN CORPUSCULAR HGB CONC 33.1 g/dL (32.0-36.0); MEAN CORPUSCULAR VOLUME 86.6 fL (79-99); MONOCYTES % (AUTO) 4.9 % (3.0-13.0); PLATELET COUNT (AUTO) 127 K/uL (130-400); RED BLOOD CELL COUNT(AUTO) 4.92 MIL/uL (4.00-5.50); WHITE BLOOD COUNT (AUTO) 7.3 K/uL (4.8-10.8)
[2022-01-24 16:24] LABS: BACTERIA,URINE Few /HPF (None Seen); MUCUS,URINE Moderate LPF (None Seen); RBC,URINE 0-1 /HPF (0-1)
[2022-01-24 16:26] LABS: SQUAMOUS EPITHELIAL CELL,UR Few /HPF (0-2)
[2022-01-24] MEDS ORDERED: 0.9%NACL 1000ML 1,000 ML IV SCH (16:30)
[2022-01-24] MEDS ORDERED: DICYCLOMINE HCL 10 MG/5 ML ML PO ONE (16:30)
[2022-01-24] MEDS ORDERED: LIDOCAINE HCL 2% VISCOUS 15 ML UDCUP PO ONE (16:30)
[2022-01-24] MEDS ORDERED: FAMOTIDINE 20MG VIAL IV ONE (16:30)
[2022-01-24] MEDS ORDERED: MAG/ALUM/SIMETH 30 ML UDCUP PO ONE (16:30)
[2022-01-24] MEDS ORDERED: PROMETHAZINE HCL 25 MG/ML 1ML AMPULE IM ONE (16:30)
[2022-01-24 16:32] LABS: CREATININE 0.6 mg/dL (0.5-1.5); POTASSIUM 3.6 mmol/L (3.5-5.1)
[2022-01-24 16:41] LABS: ALBUMIN 3.7 g/dL (3.5-5.0); BILIRUBIN,TOTAL 0.7 mg/dL (0.2-1.0); TOTAL PROTEIN, SERUM 7.1 g/dL (6.0-8.3)
[2022-01-24 17:22] VITALS: BP 122/62
[2022-01-24] MEDS ORDERED: LACTATED RINGERS 1000ML IV SCH (18:30)
[2022-01-24] MEDS ORDERED: DICY20TA2 PO (19:20)
[2022-01-24] MEDS ORDERED: ONDA4TAB10 PO (19:20)
== END 2022-01-24 19:28 | disposition home or self-care (01) ==
LOC: EDH 15:41
DX: A08.4 Viral intestinal infection, unspecified (principal); E86.0 Dehydration; I95.1 Orthostatic hypotension; K21.9 Gastro-esophageal reflux disease without esophagitis; Z88.8 Allergy status to other drugs, medicaments and biological substances
CPT/HCPCS: 36415; 76705; 80053; 81001; 83690; 84484; 85025; 96361; 96372; 96374; 99285; J2550; J3490; J7030; J7120

== ENCOUNTER 2022-03-25 01:02 | Emergency (ER) | payer MEDICARE ==
[~2022-03-25] VITALS: Ht 160 cm; Wt 58.5 kg
[~2022-03-25 01:02] MED LIST changes: +DICY20TA2 PO; +ONDA4TAB10 PO
[2022-03-25 01:51] LABS: BASOPHILS % (AUTO) 0.5 % (0.0-5.0); HEMATOCRIT 40.8 % (36-48); LYMPHOCYTES % (AUTO) 24.7 % (21.0-51.0); MEAN CORPUSCULAR HEMOGLOBIN 28.7 pg (27.0-33.0); MEAN CORPUSCULAR HGB CONC 33.6 g/dL (32.0-36.0); MEAN CORPUSCULAR VOLUME 85.5 fL (79-99); MONOCYTES % (AUTO) 8.9 % (3.0-13.0); NEUTROPHILS % (AUTO) 65.5 % (40.0-77.0); PLATELET COUNT (AUTO) 131 K/uL (130-400); RED BLOOD CELL COUNT(AUTO) 4.77 MIL/uL (4.00-5.50); RED CELL DISTRIBUTION WIDTH 13.5 % (11.0-15.5); WHITE BLOOD COUNT (AUTO) 8.4 K/uL (4.8-10.8)
[2022-03-25 02:09] LABS: CREATININE 0.7 mg/dL (0.5-1.5); POTASSIUM 4.1 mmol/L (3.5-5.1)
[2022-03-25 02:14] LABS: ALBUMIN 3.7 g/dL (3.5-5.0); BILIRUBIN,TOTAL 0.4 mg/dL (0.2-1.0); TOTAL PROTEIN, SERUM 7.4 g/dL (6.0-8.3)
[2022-03-25] MEDS ORDERED: GUAIFENESIN-CODEINE 5 ML SYRUP PO ONE (04:30)
[2022-03-25] MEDS ORDERED: DOXYCYCLINE HYCLATE 100 MG TABLET PO SCH (04:30)
[2022-03-25] MEDS ORDERED: AZIT1PAC7 PO (05:53)
[2022-03-25] MEDS ORDERED: GUAI5SYR4 PO (05:53)
[2022-03-25] MEDS ORDERED: ALBUTEROL INHALER 90MCG/INH IH ONE (06:00)
[2022-03-25 06:04] VITALS: BP 117/62
== END 2022-03-25 06:20 | disposition home or self-care (01) ==
LOC: EDH 01:02
DX: J40 Bronchitis, not specified as acute or chronic (principal); R06.2 Wheezing; Z20.822 Contact with and (suspected) exposure to COVID-19; I10 Essential (primary) hypertension; F41.9 Anxiety disorder, unspecified; Z88.8 Allergy status to other drugs, medicaments and biological substances; Z87.19 Personal history of other diseases of the digestive system
CPT/HCPCS: 36415; 71045; 80053; 85025; 87635; 87804 ×2; 87880; 99284; C9803

== ENCOUNTER 2022-07-04 11:18 | Emergency (ER) | payer MEDICARE ==
[~2022-07-04 11:18] MED LIST changes: +AZIT1PAC7 PO; +GUAI5SYR4 PO
[2022-07-04 12:01] LABS: BASOPHILS % (AUTO) 0.8 % (0.0-5.0); EOSINOPHILS % (AUTO) 0.2 % (0.0-8.0); HEMATOCRIT 45.4 % (36-48); LYMPHOCYTES % (AUTO) 38.6 % (21.0-51.0); MEAN CORPUSCULAR HEMOGLOBIN 28.7 pg (27.0-33.0); MEAN CORPUSCULAR HGB CONC 33.3 g/dL (32.0-36.0); MEAN CORPUSCULAR VOLUME 86.3 fL (79-99); MONOCYTES % (AUTO) 7.1 % (3.0-13.0); NEUTROPHILS % (AUTO) 53.1 % (40.0-77.0); PLATELET COUNT (AUTO) 149 K/uL (130-400); RED BLOOD CELL COUNT(AUTO) 5.26 MIL/uL (4.00-5.50); RED CELL DISTRIBUTION WIDTH 12.9 % (11.0-15.5); WHITE BLOOD COUNT (AUTO) 6.6 K/uL (4.8-10.8)
[2022-07-04 12:19] LABS: CREATININE 0.7 mg/dL (0.5-1.5)
[2022-07-04 12:25] LABS: ALBUMIN 4.3 g/dL (3.5-5.0); TOTAL PROTEIN, SERUM 8.2 g/dL (6.0-8.3)
[2022-07-04 12:39] LABS: MAGNESIUM 1.9 mg/dL (1.80-2.40)
[2022-07-04 13:09] LABS: ABG BASE EXCESS 0.8 mmol/L (-2.0-3.0); ABG HCO3 24.4 mmol/L (21.0-28.0); ABG OXYGEN SATURATION 97.6 % (95.0-99.0); ABG PCO2 36 mmHg (32-45)
[2022-07-04] MEDS ORDERED: MORPHINE 2 MG SYG IVP ONE (15:00)
[2022-07-04] MEDS ORDERED: NAPR-1180 PO (22:59)
[2022-07-04 23:06] VITALS: BP 131/68
== END 2022-07-04 23:14 | disposition home or self-care (01) ==
LOC: EDH 11:18
DX: R07.89 Other chest pain (principal); K21.9 Gastro-esophageal reflux disease without esophagitis; E78.00 Pure hypercholesterolemia, unspecified; Z79.899 Other long term (current) drug therapy; Z88.8 Allergy status to other drugs, medicaments and biological substances; Z91.013 Allergy to seafood
CPT/HCPCS: 99285; 78580; 96374; 71045; 82550; 83735; 84484 ×2; 80053; 82803; 85025; 85378; 36415; 93005; 36600; A9540

== ENCOUNTER 2022-08-31 15:22 | Emergency (ER) | payer MEDICARE ==
[~2022-08-31] VITALS: Ht 152.4 cm; Wt 61.2 kg
[~2022-08-31 15:22] MED LIST changes: +NAPR-1180 PO
[2022-08-31 15:24] VITALS: BP 140/73
== END 2022-08-31 16:38 | disposition home or self-care (01) ==
LOC: EDH 15:22
DX: R09.81 Nasal congestion (principal); K21.9 Gastro-esophageal reflux disease without esophagitis; E78.00 Pure hypercholesterolemia, unspecified; I10 Essential (primary) hypertension; Z98.890 Other specified postprocedural states; Z88.8 Allergy status to other drugs, medicaments and biological substances; Z91.013 Allergy to seafood; Z79.899 Other long term (current) drug therapy

== ENCOUNTER 2023-04-11 23:47 | Emergency (ER) | payer MEDICARE ==
[~2023-04-11] VITALS: Ht 162.6 cm; Wt 61.2 kg
[2023-04-12] MEDS ORDERED: OSEL75 PO (00:40)
[2023-04-12] MEDS ORDERED: PRED20TA3 PO (00:40)
[2023-04-12] MEDS ORDERED: IBUP-1493 PO (00:40)
[2023-04-12] MEDS ORDERED: ALBU90AE2 IH (00:40)
[2023-04-12] MEDS ORDERED: SOLU-MEDROL 125MG VIAL IM ONE (01:00)
[2023-04-12] MEDS ORDERED: ALBUTEROL INHALER 90MCG/INH IH ONE (01:00)
[2023-04-12 01:21] VITALS: BP 144/72
== END 2023-04-12 01:22 | disposition home or self-care (01) ==
LOC: EDH 23:47
DX: J10.1 Influenza due to other identified influenza virus with other respiratory manifestations (principal); J20.9 Acute bronchitis, unspecified; J45.909 Unspecified asthma, uncomplicated; E78.00 Pure hypercholesterolemia, unspecified; I10 Essential (primary) hypertension; K21.9 Gastro-esophageal reflux disease without esophagitis; Z88.8 Allergy status to other drugs, medicaments and biological substances; Z20.822 Contact with and (suspected) exposure to COVID-19
CPT/HCPCS: 99283; 87635; 87880; 87804 ×2; 96372; C9803; J2930

== ENCOUNTER 2023-10-31 21:03 | Emergency (ER) | payer MEDICARE ==
[~2023-10-31] VITALS: Ht 160 cm; Wt 61.2 kg
[~2023-10-31 21:03] MED LIST changes: +AMOX1TAB15 PO; -AZIT1PAC7 PO; +BENZ-39 PO; -DICY20TA2 PO; +FLUC100T12 PO; -GUAI5SYR4 PO; -NAPR-1180 PO; -ONDA4TAB10 PO; -PANT40TA54 PO; +PRED20TA3 PO
[2023-10-31 21:31] LABS: SARS-CoV-2, RNA, NAAT NEGATIVE SARS CoV-2 (NEGATIVE)
[2023-10-31 21:36] LABS: INFLUENZA TYPE A Negative For Type A (NEGATIVE); INFLUENZA TYPE B Negative For Type B (NEGATIVE)
[2023-10-31 23:42] VITALS: BP 142/70; PULSE 77; RESP 16; O2SAT 99
== END 2023-10-31 23:42 | disposition home or self-care (01) ==
LOC: EDH 21:03
DX: R07.81 Pleurodynia (principal); K21.9 Gastro-esophageal reflux disease without esophagitis; E78.00 Pure hypercholesterolemia, unspecified; I10 Essential (primary) hypertension; Z79.52 Long term (current) use of systemic steroids; Z88.8 Allergy status to other drugs, medicaments and biological substances; Z91.041 Radiographic dye allergy status; Z20.822 Contact with and (suspected) exposure to COVID-19
CPT/HCPCS: 71045; 84484; 87635; 87804; 93005